=== PATIENT | male | born 1955 | race Caucasian/White ===

== ENCOUNTER → 2018-02-06 | Outpatient (CLI) | payer OTHER | END | disposition home or self-care (01) | LOC: KCIC MRI 07:43 | DX: M48.061 Spinal stenosis, lumbar region without neurogenic claudication (principal); M43.17 Spondylolisthesis, lumbosacral region; M41.87 Other forms of scoliosis, lumbosacral region; M25.78 Osteophyte, vertebrae; D18.09 Hemangioma of other sites | CPT/HCPCS: 72148 ==

== ENCOUNTER → 2018-03-19 | Outpatient (CLI) | payer OTHER ==
[~2018-03-19] MED LIST: IOHEXOL 180 MG/ML 10 ML VIAL.; LIDOCAINE 1% PF 2 ML VIAL.; methylPREDNISolone ACETATE 40 MG/ML VIAL.; methylPREDNISolone ACETATE 80 MG/ML VIAL.
== END ==
LOC: PNCL 07:48
DX: M51.16 Intervertebral disc disorders with radiculopathy, lumbar region (principal); M48.061 Spinal stenosis, lumbar region without neurogenic claudication; M19.90 Unspecified osteoarthritis, unspecified site; Z98.890 Other specified postprocedural states; Z79.899 Other long term (current) drug therapy
CPT/HCPCS: 62323; J1030; J1040; Q9965

== ENCOUNTER → 2018-04-17 | Outpatient (CLI) | payer OTHER | END | disposition home or self-care (01) | LOC: PNCL 07:50 | DX: M51.16 Intervertebral disc disorders with radiculopathy, lumbar region (principal); M48.061 Spinal stenosis, lumbar region without neurogenic claudication; Z79.899 Other long term (current) drug therapy | CPT/HCPCS: 99212 ==

== ENCOUNTER 2019-08-14 20:25 | Inpatient (IN) | payer OTHER ==
[~2019-08-14] VITALS: Ht 182.9 cm; Wt 88.5 kg
[~2019-08-14 20:25] MED LIST changes: +CYAN-25 PO; +GLUC100018 PO; +IBUP100O25 PO; -IOHEXOL 180 MG/ML 10 ML VIAL.; -LIDOCAINE 1% PF 2 ML VIAL.; -methylPREDNISolone ACETATE 40 MG/ML VIAL.; -methylPREDNISolone ACETATE 80 MG/ML VIAL.
[2019-08-14 20:30] VITALS: BP 133/81
--- NOTE | 2019-08-14 20:30 | NUR ---
Admit from [address] via EMS with DX of Chest Pain with elevated troponin. A/O x 4. VSS. Pleasant. at bedside. Orientated to room and call light. Reviewed plan of care to include Heparin drip and lab draws. Patient verbalized understanding. Resting in bed with call light at hand.
[2019-08-14] MEDS ORDERED: HEPARIN 25,000UTS/500ML PREMIX 500 ML IV PRN ×2 (20:45→21:00)
[2019-08-14] MEDS ORDERED: HEPARIN for IV BOLUS 10,000 UNIT/10 ML VIAL. IV PRN (21:00)
[2019-08-14] MEDS ORDERED: NITROGLYCERIN SUBLINGUAL 0.4 MG BOTTLE OF 25. SL PRN (21:15)
[2019-08-14] MEDS ORDERED: ONDANSETRON PF 4 MG/2 ML VIAL. IVP PRN (21:15)
[2019-08-14] MEDS ORDERED: MORPHINE SULFATE 2 MG/ML VIAL. IV PRN (21:15)
[2019-08-14] MEDS: ATORVASTATIN CALCIUM 20 MG TABLET PO SCH (21:45)
[2019-08-14] MEDS: METOPROLOL TART IMMED RELEASE 25 MG TABLET. PO SCH (21:46)
[2019-08-14 23:54] VITALS: BP 87/56
[2019-08-15] VITALS (12 sets, daily range): BP systolic 78–129; BP diastolic 47–78
[2019-08-15] MEDS: ANTI-COAG MONITOR BY PHARMACY. MC PRN ×2 (00:38→08:45)
[2019-08-15 04:34] LABS: BASO # 0.1 x10^3/uL (0.0-0.2); BASO % 1 % (0-3); EOS # 0.2 x10^3/uL (0.0-0.7); EOS % 4 % (0-3); HEMATOCRIT 42.6 % (39.0-53.0); HEMOGLOBIN 14.1 g/dL (13.0-17.5); LYMPH # 1.3 x10^3/uL (1.0-4.8); LYMPH % 21 % (24-48); MEAN CORPUSCULAR HEMOGLOBIN 28 pg (25-35); MEAN CORPUSCULAR HGB CONC 33 g/dL (31-37); MEAN CORPUSCULAR VOLUME 86 fL (79-100); MONO # 0.6 x10^3/uL (0.0-1.1); MONO % 9 % (0-9); NEUT # 4.1 x10^3/uL (1.8-7.7); NEUT % 65 % (31-73); PLATELET COUNT 254 x10^3/uL (140-400); RED BLOOD COUNT 4.96 x10^6/uL (4.30-5.70); RED CELL DISTRIBUTION WIDTH 14.9 % (11.5-14.5); WHITE BLOOD COUNT 6.3 x10^3/uL (4.0-11.0)
[2019-08-15 04:59] LABS: ALBUMIN 3.2 g/dL (3.4-5.0); ALBUMIN/GLOBULIN RATIO 0.9 (1.0-1.7); CALCIUM 8.5 mg/dL (8.5-10.1); GFR 75.7; TOTAL BILIRUBIN 0.3 mg/dL (0.2-1.0); TOTAL PROTEIN 6.6 g/dL (6.4-8.2)
[2019-08-15] MEDS ORDERED: ASPIRIN 325 MG TABLET PO SCH (08:00)
[2019-08-15] MEDS: METOPROLOL TART IMMED RELEASE 25 MG TABLET. PO SCH ×2 (08:37→20:49)
--- NOTE | 2019-08-15 10:04 | HP ---
ADMIT DATE: HISTORY OF PRESENT ILLNESS: The patient is a 63-year-old male patient who came to the Emergency Room with a complaint of chest pressure that started about an hour prior to the Emergency Room of [facility]. Yesterday an hour prior to arrival, pain was in his left upper chest, stated that its maximum intensity was about 6/10. He became very diaphoretic, had mild nausea, but no vomiting, no radiation, no shortness of breath. His pain started at rest. By the time he arrived to the Emergency Room, the pain was down to 2/10 in severity. He was extensively investigated in the Emergency Room. His EKG showed that it was normal sinus rhythm with a rate of 70 beats per minute. Chest x-ray was unremarkable. The heart is not enlarged. His first set of cardiac enzymes showed troponin to be 0.017 and apparently he was admitted to do 2 more sets of cardiac enzymes, to consult the pharm spec and check his fasting lipid profile if he stays overnight. Actually his second set of cardiac enzyme has risen to 0.283. Therefore, he was started on a heparin drip and after in consultation with the pharm spec was also started on aspirin, atorvastatin, metoprolol and a decision was made to transfer him to [facility] for cardiac catheterization. PAST MEDICAL HISTORY: Significant for hyperlipidemia, benign prostatic hypertrophy. PAST SURGICAL HISTORY: Significant for bilateral inguinal hernia repair, also had a colonoscopy. ALLERGIES: He has no known drug allergies. MEDICATIONS: When he came to [facility], he actually was on no medication by prescription. He takes ibuprofen other rrpg-ilc-scjlnay medication. He was started yesterday on metoprolol, Atrovent and aspirin. FAMILY HISTORY: He has 5 siblings and 3 older and 2 younger, all healthy. His father is still alive at the age of 91 and mother alive at age of 88, she does have a pacemaker. SOCIAL HISTORY: He is , never smoked, does not drink alcohol or use any recreational drugs. He is self-employed excavator. REVIEW OF SYSTEMS: As per history of present illness. When I saw him today, he was resting slightly propped up in bed, in no apparent distress. Did complain of mild chest discomfort, but denied any nausea or vomiting. Denied any shortness of breath or any further episodes of diaphoresis. PHYSICAL EXAMINATION: GENERAL: When I examined him, he looked well and was clearly in no apparent respiratory distress. No pallor, jaundice, cyanosis or thyromegaly. No jugular venous distention. No lower limb edema. VITAL SIGNS: His heart rate was 93, blood pressure 125/70, temperature was 98.3, respiratory rate was 18 and oxygen saturation was 95%. HEAD, EYES, EARS, NOSE AND THROAT: Showed normocephalic, atraumatic. NECK: Supple. HEART: Showed normal first and second heart sounds. No gallop, rub or murmur. CHEST: Clear to auscultation. No crepitation or rhonchi. ABDOMEN: Distended, soft, nontender. NEUROLOGIC: He was awake, alert, responding appropriately. All cranial nerves intact. EXTREMITIES: He moves extremities without difficulty, ambulates without assistance or assistive devices. LABORATORY DATA: His lab work this morning showed a white cell count 6300, hemoglobin 14, hematocrit 42, MCV 86 and platelet count 254,000. His third set of cardiac enzymes showed troponin to be 0.129. His chemistry showed a serum sodium 144, potassium 4, chloride 108, bicarbonate 26, anion gap of 10, BUN 15, creatinine 1, estimated GFR was 75 mL per minute, glucose was 114, calcium was 8.5. Total bilirubin, AST, ALT, alkaline phosphatase were normal. Total protein was 6.6, albumin was 3.2. His serum triglycerides were 116, total cholesterol 206, LDL cholesterol 132, VLDL was 23, and HDL cholesterol of 51, the ratio was 4. ASSESSMENT AND PLAN: In summary, this is a 63-year-old male patient who came with chest pain and diaphoresis, some nausea, but no vomiting, no shortness of breath. His second set of cardiac enzyme has risen to 0.294. EKG was unremarkable and was transferred to [facility], started on heparin, metoprolol, Lipitor, and aspirin. We will consult the Cardiology team with a plan to do cardiac catheterization. SHIRA LEVINE MD DR: ARJUN/nova JOB#: [id number] / [id number]
[2019-08-15] MEDS ORDERED: LIDOCAINE 1% PF 2 ML VIAL. ONE (10:06)
[2019-08-15] MEDS ORDERED: IODIXANOL 320 MG/ML 100 ML VIAL. ONE (10:06)
[2019-08-15] MEDS ORDERED: VERAPAMIL 5 MG/2 ML VIAL. ONE (10:10)
[2019-08-15] MEDS ORDERED: NITROGLYCERIN 200 MCG/2 ML SYRINGE FOR CATH/VASC LAB. ONE ×3 (10:10→11:26)
[2019-08-15] MEDS ORDERED: fentaNYL PF VIAL 100 MCG/2 ML VIAL ONE (10:10)
[2019-08-15] MEDS ORDERED: HEPARIN for IV BOLUS 10,000 UNIT/10 ML VIAL. ONE (10:10)
[2019-08-15] MEDS ORDERED: MIDAZOLAM HCL/PF 2 MG/2 ML VIAL. ONE (10:10)
[2019-08-15] MEDS ORDERED: MIDAZOLAM HCL/PF 2 MG/2 ML VIAL. IV ONE (10:45)
[2019-08-15] MEDS ORDERED: HEPARIN for IV BOLUS 10,000 UNIT/10 ML VIAL. IART ONE (10:45)
[2019-08-15] MEDS ORDERED: IODIXANOL 320 MG/ML 100 ML VIAL. IART ONE (10:45)
[2019-08-15] MEDS ORDERED: fentaNYL PF VIAL 100 MCG/2 ML VIAL IV ONE (10:45)
[2019-08-15] MEDS ORDERED: VERAPAMIL 5 MG/2 ML VIAL. IART ONE (10:45)
[2019-08-15] MEDS ORDERED: LIDOCAINE 1% PF 2 ML VIAL. INJ ONE (10:45)
[2019-08-15] MEDS ORDERED: NITROGLYCERIN 200 MCG/2 ML SYRINGE FOR CATH/VASC LAB. IART ONE (10:45)
[2019-08-15] MEDS ORDERED: CONTRAST GIVEN. MC PRN (11:00)
[2019-08-15] MEDS ORDERED: BIVALIRUDIN 250 MG VIAL. IV ONE ×2 (11:06→11:15)
[2019-08-15] MEDS ORDERED: PRASUGREL 10 MG TABLET. PO ONE (11:30)
[2019-08-15] MEDS ORDERED: IV 1/2 NORMAL SALINE 1,000 ML IV SCH (11:42)
--- NOTE | 2019-08-15 11:42 | PDOC ---
MODERATE SEDATION ASSESSMENT RISKS/ALTERNATIVES Risks/Alternatives Risks and alternatives of this type of sedation and procedure discussed with: RISK/ALTERNATIVES: Patient H & P ON CHART H & P H & P on chart and reviewed for co-morbid conditions and appropriate labs. H&P ON CHART: Yes STATUS PREG STATUS ASSESSED: N/A MEDS/ALLERGIES REVIEWED Meds/Allergies Reviewed Medications and Allergies including time and route of recently administered narcotics and sedatives. MEDS/ALLERGIES REVIEWED: Yes ASA RATING ASA RATING: II AIRWAY ASSESSMENT Airway Assessment Airway patency, oral function limitations, presence of caps, crowns, dentures, partials, and ability to extend neck assessed. AIRWAY ASSESSMENT: Yes MALLAMPATI SCORE MALLAMPATI SCORE: II PRE-SEDATION ASSESSMENT PRE-SEDATION ASSESSMENT: Yes DARA LUCIO MD Aug 15, 2019 11:42
[2019-08-15] MEDS ORDERED: ACETAMINOPHEN 325 MG TABLET. PO PRN (11:45)
[2019-08-15] MEDS ORDERED: NITROGLYCERIN SUBLINGUAL 0.4 MG BOTTLE OF 25. SL PRN (11:45)
--- NOTE | 2019-08-15 11:46 | PDOC ---
PROGRESS NOTES Subjective Subjective Patient seen at [facility] for chest pain, non-STEMI and transferred to [facility] for cardiac catheterization (please see consultation note from [facility]). He is presently chest pain-free. Objective Objective Vital Signs Date Time Temp Pulse Resp B/P (MAP) Pulse Ox O2 Delivery O2 Flow Rate FiO2 08/15/19 11:38 55 11 98 Room Air 08/15/19 10:45 2.0 08/15/19 08:37 125/70 08/15/19 07:42 98.3 98.3 Intake and Output 08/15/19 07:00 Intake Total 30 ml Balance 30 ml Intake Oral 30 ml # Voids 3 Physical Exam Abdomen: Soft, No tenderness Heart: Regular rate, No murmurs Extremities: No clubbing, No edema General: Alert, Oriented X3 HEENT: Atraumatic Lungs: Clear to auscultation Neck: Supple Psych/Mental Status: Mood NL Assessment Assessment 1. Acute non-STEMI: Presently chest pain-free. Was on heparin infusion overnight. Plan for cardiac catheterization and possible angioplasty today. Risks and benefits were explained. 2. Hyperlipidemia: Continue statin therapy Comment Review of Relevant I have reviewed the following items cielo (where applicable) has been applied. Labs Laboratory Tests Test 08/14/19 21:08 08/15/19 03:23 08/15/19 03:30 08/15/19 09:02 Troponin I Quantitative 0.129 ng/mL (0.000-0.055) Sodium Level 144 mmol/L (136-145) Potassium Level 4.0 mmol/L (3.5-5.1) Chloride Level 108 mmol/L (98-107) Carbon Dioxide Level 26 mmol/L (21-32) Anion Gap 10 (6-14) Blood Urea Nitrogen 15 mg/dL (8-26) Creatinine 1.0 mg/dL (0.7-1.3) Estimated GFR (Cockcroft-Gault) 75.7 BUN/Creatinine Ratio 15 (6-20) Glucose Level 114 mg/dL (70-99) Calcium Level 8.5 mg/dL (8.5-10.1) Total Bilirubin 0.3 mg/dL (0.2-1.0) Aspartate Amino Transf (AST/SGOT) 15 U/L (15-37) Alanine Aminotransferase (ALT/SGPT) 18 U/L (16-63) Alkaline Phosphatase 69 U/L (46-116) Total Protein 6.6 g/dL (6.4-8.2) Albumin 3.2 g/dL (3.4-5.0) Albumin/Globulin Ratio 0.9 (1.0-1.7) Triglycerides Level 116 mg/dL (0-150) Cholesterol Level 206 mg/dL (0-200) LDL Cholesterol, Calculated 132 mg/dL (0-100) VLDL Cholesterol, Calculated 23 mg/dL (0-40) Non-HDL Cholesterol Calculated 155 mg/dL (0-129) HDL Cholesterol 51 mg/dL (40-60) Cholesterol/HDL Ratio 4.0 White Blood Count 6.3 x10^3/uL (4.0-11.0) Red Blood Count 4.96 x10^6/uL (4.30-5.70) Hemoglobin 14.1 g/dL (13.0-17.5) Hematocrit 42.6 % (39.0-53.0) Mean Corpuscular Volume 86 fL (79-100) Mean Corpuscular Hemoglobin 28 pg (25-35) Mean Corpuscular Hemoglobin Concent 33 g/dL (31-37) Red Cell Distribution Width 14.9 % (11.5-14.5) Platelet Count 254 x10^3/uL (140-400) Neutrophils (%) (Auto) 65 % (31-73) Lymphocytes (%) (Auto) 21 % (24-48) Monocytes (%) (Auto) 9 % (0-9) Eosinophils (%) (Auto) 4 % (0-3) Basophils (%) (Auto) 1 % (0-3) Neutrophils # (Auto) 4.1 x10^3/uL (1.8-7.7) Lymphocytes # (Auto) 1.3 x10^3/uL (1.0-4.8) Monocytes # (Auto) 0.6 x10^3/uL (0.0-1.1) Eosinophils # (Auto) 0.2 x10^3/uL (0.0-0.7) Basophils # (Auto) 0.1 x10^3/uL (0.0-0.2) Heparin Anti-Xa Act, Unfractionated 0.36 IU/mL (0.30-0.70) 0.38 IU/mL (0.30-0.70) Medications Current Medications Aspirin (Jourdan Aspirin) 325 mg DAILYWBKFT PO Last administered on 08/15/19at 08:36; Start 08/15/19 at 08:00 Atorvastatin Calcium (Lipitor) 20 mg QHS PO Last administered on 08/14/19at 21:45; Start 08/14/19 at 21:30 Bivalirudin (Angiomax) 250 mg 1X ONCE IV Last administered on 08/15/19at 11:10; Start 08/15/19 at 11:15; Stop 08/15/19 at 11:16; Status DC Bivalirudin (Angiomax) 250 mg STK-MED ONCE IV ; Start 08/15/19 at 11:06; Stop 08/15/19 at 11:07; Status DC Fentanyl Citrate (Fentanyl 2ml Vial) 100 mcg 1X ONCE IV Last administered on 08/15/19at 10:45; Start 08/15/19 at 10:45; Stop 08/15/19 at 10:47; Status DC Fentanyl Citrate (Fentanyl 2ml Vial) 100 mcg STK-MED ONCE .ROUTE ; Start 08/15/19 at 10:10; Stop 08/15/19 at 10:10; Status DC Heparin Sodium (Porcine) (Heparin Sodium) 2,250 unit PRN Q6HRS PRN IV FOR UFH LEVEL LESS THAN 0.2; Start 08/14/19 at 21:00 Heparin Sodium (Porcine) (Heparin Sodium) 2,500 unit 1X ONCE IART Last administered on 08/15/19at 10:45; Start 08/15/19 at 10:45; Stop 08/15/19 at 10:47; Status DC Heparin Sodium (Porcine) (Heparin Sodium) 10,000 unit STK-MED ONCE .ROUTE ; Start 08/15/19 at 10:10; Stop 08/15/19 at 10:10; Status DC Heparin Sodium/ Dextrose 500 ml @ 0 mls/hr CONT PRN IV PER PROTOCOL; Start 08/14/19 at 20:45; Status Cancel Heparin Sodium/ Dextrose 500 ml @ 0 mls/hr CONT PRN IV NSTEMI Last administered on 08/14/19at 21:26; Start 08/14/19 at 21:00 Heparin Sodium/ Sodium Chloride 1,000 ml @ As Directed STK-MED ONCE .ROUTE ; Start 08/15/19 at 10:06; Stop 08/15/19 at 10:06; Status DC Heparin Sodium/ Sodium Chloride (HEPARIN for ARTERIAL LINE FLUSH) 1,000 unit 1X ONCE IART Last administered on 08/15/19at 10:45; Start 08/15/19 at 10:45; Stop 08/15/19 at 10:47; Status DC Heparin Sodium/ Sodium Chloride (HEPARIN for ARTERIAL LINE FLUSH) 1,000 unit 1X ONCE IART Last administered on 08/15/19at 10:45; Start 08/15/19 at 10:45; Stop 08/15/19 at 10:47; Status DC Influenza Virus Vaccine Quadrival (Afluria Quad 2019-20 (3yr Up) Syringe) 0.5 ml ONCE ONCE VAX IM ; Start 08/16/19 at 09:00; Stop 08/16/19 at 09:01 Info (Anti-Coagulation Monitoring By Pharmacy) 1 each PRN DAILY PRN MC SEE COMMENTS Last administered on 08/15/19at 08:45; Start 08/14/19 at 21:15 Info (CONTRAST GIVEN -- Rx MONITORING) 1 each PRN DAILY PRN MC SEE COMMENTS; Start 08/15/19 at 11:00; Stop 08/17/19 at 10:59 Iodixanol (Visipaque 320) 100 ml 1X ONCE IART Last administered on 08/15/19at 10:45; Start 08/15/19 at 10:45; Stop 08/15/19 at 10:47; Status DC Iodixanol (Visipaque 320) 100 ml STK-MED ONCE .ROUTE ; Start 08/15/19 at 10:06; Stop 08/15/19 at 10:06; Status DC Lidocaine HCl (Xylocaine-Mpf 1% 2ml Vial) 2 ml 1X ONCE INJ Last administered on 08/15/19at 10:45; Start 08/15/19 at 10:45; Stop 08/15/19 at 10:47; Status DC Lidocaine HCl (Xylocaine-Mpf 1% 2ml Vial) 2 ml STK-MED ONCE .ROUTE ; Start at 10:06; Stop 08/15/19 at 10:06; Status DC Metoprolol Tartrate (Lopressor) 25 mg BID PO Last administered on 08/15/19at 08:37; Start 08/14/19 at 21:00 Midazolam HCl (Versed) 2 mg 1X ONCE IV Last administered on 08/15/19at 10:45; Start 08/15/19 at 10:45; Stop 08/15/19 at 10:47; Status DC Midazolam HCl (Versed) 2 mg STK-MED ONCE .ROUTE ; Start 08/15/19 at 10:10; St op 08/15/19 at 10:10; Status DC Morphine Sulfate (Morphine Sulfate) 2 mg PRN Q2HR PRN IV MODERATE TO SEVERE PAIN; Start 08/14/19 at 21:15 Nitroglycerin (Nitroglycerin) 200 mcg 1X ONCE IART Last administered on 08/15/19at 10:45; Start 08/15/19 at 10:45; Stop 08/15/19 at 10:47; Status DC Nitroglycerin (Nitroglycerin) 200 mcg STK-MED ONCE .ROUTE ; Start 08/15/19 at 10:10; Stop 08/15/19 at 10:10; Status DC Nitroglycerin (Nitroglycerin) 200 mcg STK-MED ONCE .ROUTE ; Start 08/15/19 at 11:17; Stop 08/15/19 at 11:17; Status DC Nitroglycerin (Nitroglycerin) 200 mcg STK-MED ONCE .ROUTE ; Start 08/15/19 at 11:26; Stop 08/15/19 at 11:27; Status DC Nitroglycerin (Nitrostat) 0.4 mg PRN Q5MIN PRN SL CHEST PAIN; Start 08/14/19 at 21:15 Ondansetron HCl (Zofran) 4 mg PRN Q4HRS PRN IVP NAUSEA/VOMITING 1ST CHOICE; Start 08/14/19 at 21:15 Prasugrel (Effient) 60 mg 1X ONCE PO Last administered on 08/15/19at 11:41; Start 08/15/19 at 11:30; Stop 08/15/19 at 11:32; Status DC Verapamil HCl (Verapamil) 2.5 mg 1X ONCE IART Last administered on 08/15/19at 10:45; Start 08/15/19 at 10:45; Stop 08/15/19 at 10:47; Status DC Verapamil HCl (Verapamil) 5 mg STK-MED ONCE .ROUTE ; Start 08/15/19 at 10:10; Stop 08/15/19 at 10:10; Status DC Vitals/I & O Vital Sign - Last 24 Hours 08/14/19 08/14/19 08/14/19 08/14/19 20:30 20:30 21:46 23:54 Temp 97.9 97.9 Pulse 68 68 71 Resp 20 20 B/P (MAP) 133/81 (98) 133/81 87/56 (66) Pulse Ox 95 96 O2 Delivery Room Air Room Air Room Air 08/15/19 08/15/19 08/15/19 08/15/19 03:48 07:30 07:42 08:37 Temp 98.3 98.3 98.3 98.3 Pulse 93 93 93 Resp 18 B/P (MAP) 127/70 (89) 125/70 (88) 125/70 Pulse Ox 95 95 O2 Delivery Room Air Room Air Room Air 08/15/19 08/15/19 08/15/19 10:45 10:45 11:38 Pulse 62 55 Resp 12 11 Pulse Ox 97 98 O2 Delivery Nasal Cannula Room Air O2 Flow Rate 2.0 Intake and Output 08/14/19 08/14/19 08/15/19 15:00 23:00 07:00 Intake Total 30 ml Balance 30 ml DARA LUCIO MD Aug 15, 2019 11:46
--- NOTE | 2019-08-15 12:04 | CARD ---
MR#: [id number] Date of Study: 08/15/2019 Ordering Physician: DARA COLBY, Referring Physician: DARA COLBY Tech: RT Praneeth (R) APPROVED REPORT Technologist: RT Praneeth (R) Nurse: Kelle Yip RN Procedure(s) performed: 1. Left Heart catheterization, selective coronary angiography and left ventr iculography via right transradial approach 2. Successful PCI/drug eluting stent placement to left anterior descending artery Sedation Time: 45 Minutes Dose: 143 Gycm2 Contrast: 214 mL Visipaque Fluoro Time: 0.9 Minutes INDICATION The indication(s) include : non-STEMI . CSHA Clinical Frailty Scale CS Clinical Frailty Scale: Managing Well Heart Failure Heart Failure: No PROCEDURE NARRATIVE After explaining the risks, benefits and alternative options, informed consent was obtained from jake ent. Patient was brought to the cardiac Digital Photographic [employer]inter and right wrist was prepped and draped in the usual fashion after confirming a positive modified Jose Luis's test. Arterial access was obtained in the righ t radial artery and a 6 Namibian sheath was inserted. 6 Namibian Santiago catheter was used to perform gustavo ective angiography of the left and right coronary arteries. 6 Namibian pigtail catheter was used to pe rform left ventriculography. The following findings were noted. FINDINGS 1. Hemodynamics: Left ventricular end-diastolic pressure of 10 mmHg. No pullback gradient across th e aortic valve. 2. Left ventriculography: Low normal left ventricle systolic function with ejection fraction estima allyn at 50%. No significant mitral regurgitation seen. 3. Coronary angiography: a. The left main coronary artery arose from the left sinus of Valsalva, gave rise to the left anteri or descending and left circumflex arteries and did not show any significant stenosis. b. The left anterior descending artery showed critical 95% stenosis in the midsegment followed by an other 70-80% stenosis. c. The left circumflex artery was a large and dominant vessel that did not show any significant sten osis. d. The right coronary artery was a nondominant vessel arising from the right sinus of Valsalva that did not show any significant stenosis. INTERVENTION The left main coronary artery was engaged with a 6 Namibian XB 3.5 guide catheter. The stenoses in the midsegment of the left anterior descending artery were crossed with a 0.014 inch Skypaz Pro water guid ewire. These with predilated with a 2.5 x 15 mm trek balloon following which there were treated succe ssfully with overlapping 2.75 x 34 and 3.0 x 12 mm resolute rosaura drug-eluting stents. Follow-up angio graphy showed resolution of the stenoses to 0% with RACHAEL-3 distal flow. Patient tolerated the procedu re well. Hemostasis was achieved using TR band. There were no immediate complications. RACHAEL Flow RACHAEL Flow (Pre-Intervention): RACHAEL-1 RACHAEL Flow (Post-Intervention): RACHAEL-3 Conclusion 1. Severe single-vessel coronary artery disease involving the left anterior descending artery 2. Successful PCI/drug eluting stent placement to the left anterior descending artery 3. Low normal left ventricle systolic function with ejection fraction estimated at 50% Recommendations 1. Aspirin 325 mg daily for one month followed by 81 mg daily 2. Effient 10 mg daily for preferably one year 3. Cardiovascular risk factor modification Signed by : Dara Colby, Electronically Approved : 08/15/2019 12:03:43
[2019-08-15] MEDS: ATORVASTATIN CALCIUM 20 MG TABLET PO SCH (20:48)
[2019-08-16 03:00] VITALS: BP 125/69
[2019-08-16 07:00] VITALS: BP 122/81
[2019-08-16] MEDS ORDERED: PRASUGREL 10 MG TABLET. PO SCH (08:00)
[2019-08-16] MEDS ORDERED: ASPIRIN ENTERIC COATED 325 MG TABLET.DR. PO SCH (08:00)
[2019-08-16 08:17] VITALS: BP 122/81
[2019-08-16] MEDS: METOPROLOL TART IMMED RELEASE 25 MG TABLET. PO SCH (08:17)
[2019-08-16] MEDS ORDERED: ASPI325T8 PO (09:00)
[2019-08-16] MEDS ORDERED: METO25TA4 PO (09:00)
[2019-08-16] MEDS ORDERED: FLU VAX QS 2019-20 (36MOS+)/PF 0.5 ML SYRINGE. VAX IM ONE (09:00)
[2019-08-16] MEDS ORDERED: PRAS10TA9 PO (09:00)
[2019-08-16] MEDS ORDERED: PITA2TAB2 PO (09:41)
--- NOTE | 2019-08-16 10:40 | NUR ---
Patient discharged to home. DC instructions given and verbalized understanding. PIV and heart monitor removed. Escorted patient into a private vehicle.
--- NOTE | 2019-08-16 12:20 | PDOC ---
PROGRESS NOTES Subjective Subjective Feeling better and chest pain-free Objective Objective Vital Signs Date Time Temp Pulse Resp B/P (MAP) Pulse Ox O2 Delivery O2 Flow Rate FiO2 08/16/19 08:17 66 122/81 08/16/19 08:00 Room Air 08/16/19 07:00 98.1 19 95 98.1 08/15/19 12:23 2.0 Intake and Output 08/16/19 07:00 Intake Total 470 ml Balance 470 ml Intake Oral 470 ml # Voids 3 Physical Exam Abdomen: Soft, No tenderness Heart: Regular rate, No murmurs Extremities: No clubbing, No edema General: Alert, Oriented X3 HEENT: Atraumatic Lungs: Clear to auscultation Neck: Supple Psych/Mental Status: Mood NL Assessment Assessment 1. Acute non-STEMI: s/p PCI/CANDICE to LAD yesterday, presently stable and chest pain-free. LVEF 50%. Continue dual antiplatelet therapy. Refer patient for cardiac rehabilitation. 2. Hyperlipidemia: Patient did not tolerate lovastatin in the past. We will try Livalo. Follow-up with our office in 1 month. Comment Review of Relevant I have reviewed the following items cielo (where applicable) has been applied. Medications Current Medications Aspirin (Ecotrin) 325 mg DAILYWBKFT PO Last administered on 08/16/19at 08:15; Start 08/16/19 at 08:00 Influenza Virus Vaccine Quadrival (Afluria Quad 2019-20 (3yr Up) Syringe) 0.5 ml ONCE ONCE VAX IM Last administered on 08/16/19at 09:54; Start 08/16/19 at 09:00; Stop 08/16/19 at 09:01; Status DC Prasugrel (Effient) 10 mg DAILYWBKFT PO Last administered on 08/16/19at 08:15; Start 08/16/19 at 08:00 Vitals/I & O Vital Sign - Last 24 Hours 08/15/19 08/15/19 08/15/19 08/15/19 12:23 12:45 13:00 13:15 Temp 98.3 98.3 Pulse 55 54 54 54 B/P (MAP) 110/68 (82) 78/47 (57) 106/71 (83) 91/53 (66) Pulse Ox 98 O2 Delivery Room Air O2 Flow Rate 2.0 08/15/19 08/15/19 08/15/19 08/15/19 13:45 14:15 14:45 19:20 Temp 97.9 97.9 Pulse 62 53 85 Resp 18 B/P (MAP) 124/78 (93) 98/59 (72) 97/56 (70) 129/78 (95) Pulse Ox 96 O2 Delivery Room Air 08/15/19 08/15/19 08/15/19 08/16/19 19:38 20:49 23:01 03:00 Temp 98.2 98.1 98.2 98.1 Pulse 85 68 65 Resp 18 20 B/P (MAP) 129/78 107/73 (84) 125/69 (87) Pulse Ox 95 97 O2 Delivery Room Air Room Air Room Air 08/16/19 08/16/19 08/16/19 07:00 08:00 08:17 Temp 98.1 98.1 Pulse 66 66 Resp 19 B/P (MAP) 122/81 (95) 122/81 Pulse Ox 95 O2 Delivery Room Air Room Air Intake and Output 08/15/19 08/15/19 08/16/19 15:00 23:00 07:00 Intake Total 350 ml 120 ml 0 ml Balance 350 ml 120 ml 0 ml DARA LUCIO MD Aug 16, 2019 12:20
== END 2019-08-16 10:40 | disposition home or self-care (01) | DRG 247 ==
LOC: 2 NORTH 20:25
PROVIDERS: ADMIT Internal Medicine; ATTEND Internal Medicine
PROC: 4A023N7 Measurement of Cardiac Sampling and Pressure, Left Heart, Percutaneous Approach (ICD-10-PCS; principal; 2019-08-15)
PROC: 027035Z Dilation of Coronary Artery, One Artery with Two Drug-eluting Intraluminal Devices, Percutaneous Approach (ICD-10-PCS; 2019-08-15)
PROC: B215YZZ Fluoroscopy of Left Heart using Other Contrast (ICD-10-PCS; 2019-08-15)
PROC: B211YZZ Fluoroscopy of Multiple Coronary Arteries using Other Contrast (ICD-10-PCS; 2019-08-15)
DX: I21.4 Non-ST elevation (NSTEMI) myocardial infarction (principal); E78.5 Hyperlipidemia, unspecified; N40.0 Benign prostatic hyperplasia without lower urinary tract symptoms; I25.10 Atherosclerotic heart disease of native coronary artery without angina pectoris; Z79.899 Other long term (current) drug therapy
CPT/HCPCS: 36415; 80053; 80061; 84484; 85025; 85520; 90471; 90686; 92928; 93458; 99152; 99153; C1725; C1769; C1874; C1887; C1892; J0583; J1644; J2250; J3010; J3490; Q9967; G0378

== ENCOUNTER → 2020-09-29 | Outpatient (CLI) | payer OTHER ==
[~2020-09-29] MED LIST changes: +ASPI325T8 PO; +METO25TA4 PO; +PITA2TAB2 PO; +PRAS10TA9 PO; +REGADENOSON 0.4 MG/5 ML DISP.SYRIN. IV ONE
--- NOTE | 2020-09-29 14:09 | RAD ---
MR#: [id number] Date of Study: 09/29/2020 Ordering Physician: DARA LUCIO Referring Physician: NESSA COOLEY Tech: GILLES [place] APPROVED REPORT Test Type: Pharmacological Stress Nurse/Tech: Joe Anglin RN Test Indications: CAD Cardiac History: PTCA Medications: See Electronic Medical Record Medical History: See Electronic Medical Record Resting ECG: SR Resting Heart Rate: 59 bpm Resting Blood Pressure: 120/72mmHg Pretest Chest Pain: None Nurse/Tech Notes lungs CTA, S1S2 Consent: The procedure was explained to the patient in lay terms. Informed consent was witnessed. John eout was entered into [employer]. History and Stress Test performed by GILLES [place] Pharm. Details Pharmacologic stress testing was performed using 0.4mg per 5ml of regadenoson given intravenously ove r 7-10 seconds. Stress Symptoms No chest pain or symptoms. POST EXERCISE Reason for Termination: Infusion complete Max HR: 133 bpm Max Blood Pressure: 130/75mmHg Blood Pressure response to exercise: Normal blood pressure response during stress. Heart Rate response to exercise: normal response Chest Pain: No. Arrhythmia: No. ST Change: No. INTERPRETATION Stress EKG Conclusion: Baseline EKG showed sinus rhythm. No ischemic changes at peak stress. No arr hythmias. Imaging Protocol IMAGE PROTOCOL: Rest Tc-99m/stress Tc-99m 1 day Rest: Stress: Viability: Radiopharm.Tc99m [id number] Sestamibi [id number] 32mCi Duration 15min. 10min. Img Date 09/29/2020 09/29/2020 Inj-Img Paue54vqz. 60min. Rest Admin Site:IV - Right AntecubitalAdministrator:GILLES [place] Stress Admin Site: IV - Right AntecubitalAdministrator: DAE Smith, ARRT (R)(N) STRESS DATA End Diast. Vol.121.0mlAv. Heart Rate73.0bpm End Syst. Vol.38.0mlCO Index BSA0.0L/min Myocardial Stub046.0gEject. Xgopzeul64.0% Stress Rates Pk. Fill Rate2.47EDV/secLVtime Pk. Fill 231.42msec Pk. Empty Rate2.90ESV/secLVtime Pk. Tzext302.97msec /3 Pk. Fill1.60EDV/sec Stress Scores Regional WT0.00Summed WT0.00 Regional WM0.00Summed WM1.00 Study quality was good. Left Ventricular size was Normal at Rest and Stress. Lung uptake was . Left Ventricular ejection fraction is 59%. The rest and stress images show normal perfusion, normal contraction and thickening. LV Perf. Quant 17 Seg. SSS0.00 17 Seg. SRS0.00 17 Seg. SDS0.00 Stress Defect Extent (% LAD)0.00Rest Defect Extent (% LAD)0.00Rev. Defect Extent (% LAD)0.00 Stress Defect Extent (% LCX) 0.00Rest Defect Extent (% LCX)0.00Rev. Defect Extent (% LCX)0.00 Stress Defect Extent (% RCA)0.00Rest Defect Extent (% RCA)0.00Rev. Defect Extent (% RCA)0.00 Stress Defect Extent (% KIMMIE)0.00Rest Defect Extent (% KIMMIE)0.00Rev. Defect Extent (% KIMMIE)0.00 Conclusion 1. Regadenoson cardioisotope stress test did not show any evidence of ischemia or infarct. 2. Normal left ventricular systolic function with ejection fraction calculated at 59%. 3. Low risk for cardiac events. Signed by : Dara Lucio, Electronically Approved : 09/29/2020 14:08:40
--- NOTE | 2020-09-29 14:15 | RAD ---
MR#: [id number] Date of Study: 09/29/2020 Ordering Physician: DARA LUCIO, Referring Physician: DARA LUCIO, Tech: APPROVED REPORT Patient Location: OUT-PATIENT Laterality:Bilateral Risk Factors CAD, Doppler Spectral Velocity Analysis Right Left pCCA 127/16 cm/spCCA 78/15 cm/s mCCA 94/18 cm/smCCA 71/20 cm/s dCCA 57/14 cm/sdCCA 65/17 cm/s ECA 106/ cm/sECA 75/ cm/s pICA 71/20 cm/spICA 55/13 cm/s Quique 71/20 cm/smICA 61/24 cm/s dICA 61/23 cm/sdICA 53/20 cm/s ICA/CCA 0.56ICA/CCA 0.78 Findings Grayscale images of the bilateral carotid vessels demonstrates mild to moderate diffuse intimal hyper plasia without any focal obstructive plaque. Bilateral internal carotid artery velocities are within normal limits with overall 0 to less than 50% stenosis based on velocity criteria. Normal ICA to CCA ratios bilaterally. Bilateral vertebral velocities are antegrade. Critical Notification Critical Value: No <Conclusion> 1. No significant carotid occlusive disease bilaterally. Signed by : Mike Marcial, Electronically Approved : 09/29/2020 14:15:33
--- NOTE | 2020-09-29 15:31 | CARD ---
MR#: [id number] Date of Study: 09/29/2020 Ordering Physician: STEVE COLBY, Referring Physician: STEVE COLBY Tech: Karol Willett RDCS APPROVED REPORT EXAM: Two-dimensional and M-mode echocardiogram with Doppler and color Doppler. Other Information Quality : AverageHR: 71bpm Rhythm : NSR INDICATION Hypertension/HCVD Cardiac Disease: CAD S/P stents 2D DIMENSIONS Left Atrium(2D)3.3 (1.6-4.0cm)IVSd0.8 (0.7-1.1cm) Aortic Root(2D)3.1 (2.0-3.7cm)LVDd5.0 (3.9-5.9cm) LVOT Diameter2.6 (1.8-2.4cm)PWd1.1 (0.7-1.1cm) LVDs3.3 (2.5-4.0cm)FS (%) 33.6 % SV72.0 mlLVEF(%)62.2 (>50%) Mitral Valve MV E Unukfxjy28.1cm/sMV DECEL [id number] MV A Rycqhfts02.1cm/sE/A Ratio0.9 Pulmonary Valve PV Peak Zfkwyhsx99.0cm/s Tricuspid Valve TR P. Xzopvqfb256ae/sTR Peak Gr.24mmHg Pulmonary Vein S1 Wafxbfrm21.9cm/sD2 Gbegujau78.4cm/s PVa [id number] LEFT VENTRICLE The left ventricle is normal size. There is normal left ventricular wall thickness. The left ventricu lar systolic function is normal. The ejection fraction is estimated at 60%. There is normal LV segmen gloria wall motion. The left ventricular diastolic function is normal. No left ventricle thrombus noted on this study. There is no ventricular septal defect visualized. There is no left ventricular aneurys m. There is no mass noted in the left ventricle. RIGHT VENTRICLE The right ventricle is normal size. There is normal right ventricular wall thickness. The right ventr icular systolic function is normal. ATRIA The left atrium size is normal. The right atrium size is normal. The interatrial septum is intact wit h no evidence for an atrial septal defect or patent foramen ovale as noted on 2-D or Doppler imaging. AORTIC VALVE The aortic valve is normal in structure and function. No aortic regurgitation is present. There is no aortic valvular stenosis. There is no aortic valvular vegetation. MITRAL VALVE The mitral valve is normal in structure and function. There is no evidence of mitral valve prolapse. There is no mitral valve stenosis. There is no mitral valve regurgitation noted. TRICUSPID VALVE The tricuspid valve is normal in structure and function. Doppler and Color Flow revealed mild tricusp id regurgitation with a PA pressure of 29 mmHg. There is no tricuspid valve prolapse or vegetation. T here is no tricuspid valve stenosis. PULMONIC VALVE The pulmonary valve is normal in structure and function. Doppler and Color Flow revealed trace pulmon ic valvular regurgitation. There is no pulmonic valvular stenosis. GREAT VESSELS The aortic root is normal in size. The ascending aorta is normal in size. The pulmonary artery is nor mal. The IVC is normal in size and collapses >50% with inspiration. PERICARDIAL EFFUSION There is no pleural effusion. There is no evidence of significant pericardial effusion. Critical Notification Critical Value: No <Conclusion> The left ventricular systolic function is normal. The ejection fraction is estimated at 60%. There is normal LV segmental wall motion. Mild tricuspid regurgitation with a PA pressure of 29 mmHg. There is no evidence of significant pericardial effusion. Signed by : Steve Colby, Electronically Approved : 09/29/2020 15:30:53
== END ==
LOC: NM 08:15
PROVIDERS: ATTEND Internal Medicine Cardiovascular Disease
DX: I07.1 Rheumatic tricuspid insufficiency (principal); I65.23 Occlusion and stenosis of bilateral carotid arteries; I25.10 Atherosclerotic heart disease of native coronary artery without angina pectoris
CPT/HCPCS: 78452; 93017; 93306; 93880; A9500; J2785